=== PATIENT | male | born 1995 | race African-American/Black ===

== ENCOUNTER 2016-11-11 17:16 | Emergency (ER) | payer OTHER ==
[2016-11-11] MEDS ORDERED: DIPH/PERTUSS(ACELL)/TETANUS VAC/PF 0.5 ML SYR (>=10YO) IM ONE (17:21)
--- NOTE | 2016-11-11 17:22 | ER Document Report ---
ED Medical Screen (RME) - General Stated Complaint: ARM LACERATION Mode of Arrival: Ambulatory Information source: Patient Notes: Patient reports falling on an unknown object around 4:30 this morning. Patient with laceration to dorsal aspect of left forearm. I have greeted and performed a rapid initial assessment of this patient. A comprehensive ED assessment and evaluation of the patient, analysis of test results and completion of the medical decision making process will be conducted by additional ED providers. Physical Exam - Skin Skin irregularity: Laceration - Left forearm laceration
[2016-11-11 17:24] VITALS: BP 142/82
[2016-11-11] MEDS ORDERED: LIDOCAINE 1%/EPINEPHRINE INJ 20 ML VIAL INJ ONE (19:18)
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
== END 2016-11-11 20:12 | disposition home or self-care (01) ==
LOC: ER 17:16
PROC: 0HQEXZZ Repair Left Lower Arm Skin, External Approach (ICD-10-PCS; principal; 2016-11-11)
PROC: 0LQ60ZZ Repair Left Lower Arm and Wrist Tendon, Open Approach (ICD-10-PCS; 2016-11-11)
DX: S51.812A Laceration without foreign body of left forearm, initial encounter (principal); S56.922A Laceration of unspecified muscles, fascia and tendons at forearm level, left arm, initial encounter; F17.200 Nicotine dependence, unspecified, uncomplicated; X99.1XXA Assault by knife, initial encounter; Z23 Encounter for immunization; Z88.2 Allergy status to sulfonamides
CPT/HCPCS: 99283; 90471; 73090; 90715; 24341; 12002; J3490